=== PATIENT | male | born 1970 | race Caucasian/White ===

== ENCOUNTER 2023-09-18 14:40 | Emergency (ER) | payer OTHER ==
[~2023-09-18] VITALS: Ht 162.6 cm; Wt 72.1 kg
[2023-09-18 17:18] LABS: HEMATOCRIT 47.5 % (39.0-48.0); MEAN CELL VOLUME 93.2 fL (80.0-100.00); MEAN CORPUSCULAR HEMOGLOBIN 31.4 pg (27.00-32.0); MEAN CORPUSCULAR HGB CONC 33.6 g/dl (32.0-36.0); PLATELET COUNT 331 K/uL (150-450); RED BLOOD COUNT 5.09 M/uL (4.00-6.00); RED CELL DISTRIBUTION WIDTH 13.5 % (11.5-14.5)
[2023-09-18 17:47] LABS: CALCIUM 9.2 mg/dL (8.5-10.1); CREATININE SERUM 1.14 mg/dL (0.70-1.30); GFR 67.45; POTASSIUM 4.58 mEq/L (3.5-5.1)
== END 2023-09-18 18:32 | disposition home or self-care (01) ==
LOC: ER 14:40
PROVIDERS: General Practice
DX: H57.89 Other specified disorders of eye and adnexa (principal)

== ENCOUNTER 2024-10-09 19:15 | Emergency (ER) | payer OTHER ==
[~2024-10-09] VITALS: Ht 162.6 cm; Wt 74.4 kg
[2024-10-09] MEDS ORDERED: OMEPRAZOLE20 MG (19:32)
[2024-10-09] MEDS ORDERED: ATORVASTATIN CA20 MG PO (19:32)
[2024-10-09 20:42] LABS: HEMATOCRIT 43.3 % (39.0-48.0); HEMOGLOBIN 15.1 g/dL (13-16.00); MEAN CELL VOLUME 92.1 fL (80.0-100.00); MEAN CORPUSCULAR HEMOGLOBIN 32.2 pg (27.00-32.0); MEAN CORPUSCULAR HGB CONC 34.9 g/dl (32.0-36.0); PLATELET COUNT 316 K/uL (150-450); RED CELL DISTRIBUTION WIDTH 13.3 % (11.5-14.5)
[2024-10-09 21:04] LABS: PH,URINE 5.5 (5.0-8.0); URINE APPEARANCE Clear; URINE BILIRRUBIN Negative (NEGATIVE); URINE BLOOD Trace; URINE COLOR Yellow; URINE GLUCOSE Negative (NEGATIVE); URINE KETONE Negative (NEGATIVE); URINE LEUKOCYTE Negative; URINE NITRATE Negative; URINE PROTEIN Negative (NEGATIVE); URINE UROBILINOGEN 0.2 E.U./dl
[2024-10-09 21:06] LABS: URINE RBC 5.5 uL (0.0-20.8)
[2024-10-09 21:09] LABS: URINE BACTERIA 2.4 uL (0.0-1933); URINE CAST 0.14 uL (0.0-1.40); URINE EPITHELIAL CELLS 0.7 uL (0.0-38.8); URINE WBC 0.9 uL (0.0-23.2)
[2024-10-09] MEDS ORDERED: NAPROXEN500 MG PO (23:46)
== END 2024-10-10 00:38 | disposition home or self-care (01) ==
LOC: ER 19:17
DX: M70.22 Olecranon bursitis, left elbow (principal)